=== PATIENT | male | born 1995 | race Caucasian/White ===

== ENCOUNTER 2016-09-08 09:46 | Inpatient (IN) | payer BC ==
[~2016-09-08] VITALS: Ht 182.9 cm; Wt 76.8 kg
[2016-09-08] MEDS ORDERED: ONDANSETRON INJ 2 MG/ML 2 ML VIAL IV STA (10:02)
[2016-09-08] MEDS ORDERED: SODIUM CHLORIDE 0.9% 1000ML 1,000 ML IV STA (10:02)
[2016-09-08] MEDS: MoRPHine SULFATE 4 MG/ML 1 ML CARP\\VIAL IV PRN ×3 (10:07→11:04)
[2016-09-08] MEDS ORDERED: AMPH20CA3 PO (10:14)
[2016-09-08] MEDS ORDERED: PARO1TAB27 PO (10:14)
[2016-09-08 10:19] LABS: BASO % 0.5 %; BASO ABS # 0.07 K/uL (0-0.2); COMPLETE YES; EOS % 8.8 %; HEMATOCRIT 44.5 % (42-52); IG% 0.2 %; LYMPH % 31.5 %; LYMPH ABS # 4.53 K/uL (1.2-3.4); MEAN CELL VOLUME 88.1 fL (80-100); MEAN CORPUSCULAR HEMOGLOBIN 30.5 pg (25-34); MEAN CORPUSCULAR HGB CONC 34.6 g/dl (32-36); MEAN PLATELET VOLUME 8.8 fL (7.4-10.4); MONO % 8.2 %; NEUT % 50.8 %; PLATELET COUNT 340 K/uL (130-400); RED BLOOD COUNT 5.05 M/uL (4.7-6.1); WHITE BLOOD COUNT 14.39 K/uL (4.8-10.8)
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
--- NOTE | 2016-09-08 10:39 | DIAGNOSTIC IMAGING REPORT ---
CHEST ONE VIEW PORTABLE CLINICAL HISTORY: Atypical chest pain COMPARISON STUDY: No previous studies for comparison. FINDINGS: The cardiac and mediastinal contours are normal. There is no evidence of focal pulmonary consolidation. There is no evidence of failure. No pleural effusions are visualized.[ IMPRESSION: No active disease in the chest. Electronically signed by: Jose Danielson M.D. 09/08/2016 10:38 AM Dictated Date/Time: 09/08/2016 10:38 AM
[2016-09-08 10:41] LABS: ALT/SGPT 15 U/L (12-78); AST/SGOT 15 U/L (15-37); BLOOD UREA NITROGEN 9 mg/dl (7-18); BUN/CREATININE RATIO 9.4 (10-20); CALCIUM 8.6 mg/dl (8.5-10.1); CARBON DIOXIDE 27 mmol/L (21-32); CHLORIDE 104 mmol/L (98-107); GLUCOSE 149 mg/dl (70-99); PARTIAL THROMBOPLASTIN RATIO 1.1; PROTHROMBIN TIME (PATIENT) 10.6 SECONDS (9.0-12.0); SODIUM 140 mmol/L (136-145)
[2016-09-08 10:46] LABS: ALKALINE PHOSPHATASE 84 U/L (45-117); AMYLASE 51 U/L (25-115); C-REACTIVE PROTEIN < 0.29 mg/dl (0-0.29); CKMB/CK RATIO 0.5 (0-3.0)
[2016-09-08] MEDS ORDERED: OPTIRAY 320 IV PRN (11:00)
--- NOTE | 2016-09-08 11:36 | DIAGNOSTIC IMAGING REPORT ---
CT ANGIOGRAPHY OF THE CHEST, PULMONARY EMBOLUS PROTOCOL CLINICAL HISTORY: Chest pain. COMPARISON STUDY: Chest radiograph performed earlier today. TECHNIQUE: Following IV administration of 115 mL of Optiray-320, helical axial images of the chest were obtained utilizing the pulmonary embolus protocol. Maximal intensity projections and sagittal and coronal reformats were viewed on an independent 3D workstation. IV contrast was administered without complication. CT DOSE: 332.96 mGy.cm FINDINGS: No central or lobar pulmonary emboli are identified. The segmental and subsegmental vessels are suboptimally assessed due to respiratory motion. The size of the heart is normal. There is no evidence of thoracic aortic dissection. There is mild dilatation of the aortic root at the level of the sinuses of Valsalva. This is suboptimally assessed due to cardiac motion but measures approximately 4.2 cm in diameter. The remainder of the thoracic aorta is normal in caliber. The central airways are patent. No consolidation is present. Mild groundglass opacities with mosaic attenuation are noted. The bony thorax and upper abdomen are unremarkable. A few tiny subpleural nodules are likely benign. IMPRESSION: 1. No central or lobar pulmonary emboli. The segmental and subsegmental pulmonary arteries are suboptimally assessed due to artifact on this exam. 2. No thoracic aortic dissection identified. Mild dilatation of the aortic root at the level of the sinuses of Valsalva. This is suboptimally assessed on this exam due to motion artifact but the aorta measures approximately 4.2 cm at the level the sinuses of Valsalva. 3. No consolidation to suggest pneumonia. Mild ground glass opacities with mosaic attenuation may reflect air trapping. Electronically signed by: Jonathan Ríos M.D. 09/08/2016 11:34 AM Dictated Date/Time: 09/08/2016 11:26 AM
[2016-09-08] MEDS ORDERED: KETOROLAC TROMETHAMINE 30 MG/ML VIAL IV STA (11:43)
[2016-09-08] MEDS ORDERED: COLCHICINE 0.6 MG TAB PO ONE (11:45)
[2016-09-08] MEDS ORDERED: ACETAMINOPHEN 325 MG TAB PO PRN (13:15)
[2016-09-08] MEDS ORDERED: ONDANSETRON INJ 2 MG/ML 2 ML VIAL IV PRN (13:15)
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
[2016-09-08 16:15] VITALS: BP 122/70; PULSE 88; TEMP 36.8; O2SAT 97; Ht 182.9 cm; Wt 76.8 kg
[2016-09-08] MEDS: KETOROLAC TROMETHAMINE 30 MG/ML VIAL IV PRN (17:33)
--- NOTE | 2016-09-08 18:45 | ECHOCARDIOGRAM REPORT ---
*NOTICE TO RECEIVING REPUBLICAN AGENCY This information is strictly Confidential and protected under [place] law. [place] law prohibits you from making any further disclosure of this information unless further disclosure is expressly permitted by the written consent of the person to whom it pertains or is authorized by law. A general authorization for the release of medical or other information is not sufficient for this purpose. Hospital accepts no responsibility if the information is made available to any other person, INCLUDING THE PATIENT. Interpretation Summary * Name: JUWAN GRANADOS Study Date: 09/08/2016 03:16 PM BP: 135/83 mmHg * Patient Location: [facility] HR: 118 * : 1995 (M/d/yyyy) Gender: Male Height: 74 in * Age: 21 yrs Ethnicity: CA Weight: 171 lb * Ordering Physician: Eliecer Begum * Performed By: Kat Pelaez * * Reason For Study: PERICARDITIS * BSA: 2.0 m2 * -- Conclusions -- * 1. Normal left ventricular size and systolic function. EF 55-60%. No regional wall motion abnormalities. No left ventricular hypertrophy. No significant diastolic dysfunction. * 2. No significant valvular abnormalities. * 3. No pericardial effusion. * 4. No prior study available for comparison. Procedure Details * A complete two-dimensional transthoracic echocardiogram was performed (2D, M-mode, Doppler and color flow Doppler). Left Ventricle * Normal left ventricular size and systolic function. EF 55-60%. No regional wall motion abnormalities. No left ventricular hypertrophy. No significant diastolic dysfunction. Right Ventricle * The right ventricle is normal in size and function. * The right ventricular systolic function is normal as assessed by tricuspid annular plane systolic excursion (TAPSE) (normal >1.5 cm). Atria * The left atrial size is normal. * Right atrial size is normal. * There is no evidence of atrial septal defect, but resolution does not allow assessment for a patent foramen ovale. Mitral Valve * The mitral valve is normal in structure and function. * There is no mitral valve stenosis. * There is trace mitral regurgitation. Tricuspid Valve * The tricuspid valve is not well visualized, but is grossly normal. * There is no tricuspid stenosis. * There is trace tricuspid regurgitation. Aortic Valve * The aortic valve is normal in structure and function. * The aortic valve is trileaflet. * No hemodynamically significant valvular aortic stenosis. * No aortic regurgitation is present. Pulmonic Valve * The pulmonic valve is not well seen, but is grossly normal. * There is no pulmonic valvular stenosis. * There is no significant pulmonary regurgitation. Great Vessels * The aortic root is normal size. Pericardium/Pleural * There is no pericardial effusion. Great Vessels * Normal IVC size. MMode 2D Measurements and Calculations IVSd 1.1 cm IVSs 1.5 cm LVIDd 5.1 cm LVIDs 3.7 cm LVPWd 1.0 cm LVPWs 1.5 cm IVS/LVPW 1.1 FS 28.2 % EDV(Teich) 126.5 ml ESV(Teich) 58.0 ml EF(Teich) 54.1 % EDV(cubed) 136.4 ml ESV(cubed) 50.5 ml EF(cubed) 62.9 % % IVS thick 32.5 % % LVPW thick 45.0 % LV mass(C)d 215.8 grams LV mass(C)dI 106.1 grams/m\S\2 LV mass(C)s 212.0 grams LV mass(C)sI 104.3 grams/m\S\2 CO(Teich) 5.3 l/min CI(Teich) 2.6 l/min/m\S\2 SV(Teich) 68.5 ml SI(Teich) 33.7 ml/m\S\2 CO(cubed) 6.7 l/min CI(cubed) 3.3 l/min/m\S\2 SV(cubed) 85.8 ml SI(cubed) 42.2 ml/m\S\2 Ao root diam 3.6 cm Ao root area 10.1 cm\S\2 ACS 1.6 cm LA dimension 3.3 cm asc Aorta Diam 2.8 cm LA/Ao 0.93 LVOT diam 2.3 cm LVOT area 4.0 cm\S\2 LVAd ap4 34.8 cm\S\2 LVLd ap4 9.0 cm EDV(MOD-sp4) 113.0 ml EDV(sp4-el) 131.3 ml LVAs ap4 18.1 cm\S\2 LVLs ap4 6.7 cm ESV(MOD-sp4) 40.6 ml ESV(sp4-el) 54.6 ml EF(MOD-sp4) 64.1 % EF(sp4-el) 58.4 % LVAd ap2 29.0 cm\S\2 LVLd ap2 8.7 cm EDV(MOD-sp2) 81.8 ml LVAs ap2 15.1 cm\S\2 LVLs ap2 6.7 cm ESV(MOD-sp2) 28.1 ml EF(MOD-sp2) 65.6 % CO(MOD-sp4) 5.6 l/min CI(MOD-sp4) 2.8 l/min/m\S\2 SV(MOD-sp4) 72.4 ml SI(MOD-sp4) 35.6 ml/m\S\2 CO(MOD-sp2) 4.2 l/min CI(MOD-sp2) 2.1 l/min/m\S\2 SV(MOD-sp2) 53.7 ml SI(MOD-sp2) 26.4 ml/m\S\2 CO(sp4-el) 6.0 l/min CI(sp4-el) 2.9 l/min/m\S\2 SV(sp4-el) 76.7 ml SI(sp4-el) 37.7 ml/m\S\2 Doppler Measurements and Calculations MV E max emigdio 92.9 cm/sec MV A max emigdio 37.2 cm/sec MV E/A 2.5 MV dec time 0.18 sec Ao V2 max 133.3 cm/sec Ao max PG 7.1 mmHg Ao max PG (full) 1.1 mmHg Ao V2 mean 86.9 cm/sec Ao mean PG 3.5 mmHg Ao mean PG (full) 0.11 mmHg Ao V2 VTI 23.6 cm ALEX(I,A) 3.6 cm\S\2 ALEX(I,D) 3.6 cm\S\2 ALEX(V,A) 3.7 cm\S\2 ALEX(V,D) 3.7 cm\S\2 LV V1 max PG 6.0 mmHg LV V1 mean PG 3.4 mmHg LV V1 max 123.0 cm/sec LV V1 mean 87.6 cm/sec LV V1 VTI 21.0 cm SV(Ao) 238.1 ml SI(Ao) 117.1 ml/m\S\2 SV(LVOT) 84.3 ml SI(LVOT) 41.5 ml/m\S\2 TV E max emigdio 67.1 cm/sec PA V2 max 72.1 cm/sec PA max PG 2.1 mmHg PI end-d emigdio 91.2 cm/sec RAP systole 3.0 mmHg
[2016-09-08] MEDS: COLCHICINE 0.6 MG TAB PO SCH (19:44)
[2016-09-08 20:21] VITALS: BP 121/68; PULSE 95; TEMP 36.7; O2SAT 96
[2016-09-08 23:25] VITALS: BP 113/71; PULSE 73; TEMP 36.9; O2SAT 95
[2016-09-09 00:47] LABS: URINE APPEARANCE CLEAR (CLEAR); URINE BILIRUBIN NEG (NEG); URINE COLOR YELLOW; URINE EPITHELIAL CELL AUTO 0-5 /lpf (0-5); URINE NITRITE NEG (NEG); URINE PH 8.5 (4.5-7.5); URINE SPECIFIC GRAVITY 1.016 (1.000-1.030); UROBILINOGEN NEG (NEG)
[2016-09-09 00:48] LABS: MANUAL MICROSCOPIC REQUIRED? NO; REVIEW REQ? NO
[2016-09-09] MEDS: KETOROLAC TROMETHAMINE 30 MG/ML VIAL IV PRN (02:12)
[2016-09-09 03:28] VITALS: BP 107/68; PULSE 61; TEMP 37; O2SAT 94
[2016-09-09 05:41] LABS: BASO % 0.2 %; BASO ABS # 0.02 K/uL (0-0.2); COMPLETE YES; EOS % 3.9 %; HEMATOCRIT 40.4 % (42-52); IG% 0.3 %; LYMPH % 16.2 %; LYMPH ABS # 1.73 K/uL (1.2-3.4); MEAN CELL VOLUME 87.1 fL (80-100); MEAN CORPUSCULAR HEMOGLOBIN 30.2 pg (25-34); MEAN CORPUSCULAR HGB CONC 34.7 g/dl (32-36); MONO % 11.5 %; NEUT % 67.9 %; PLATELET COUNT 269 K/uL (130-400); RED BLOOD COUNT 4.64 M/uL (4.7-6.1); WHITE BLOOD COUNT 10.65 K/uL (4.8-10.8)
[2016-09-09 07:26] VITALS: BP 119/70; PULSE 69; TEMP 36.7; O2SAT 94
[2016-09-09] MEDS: COLCHICINE 0.6 MG TAB PO SCH (08:18)
[2016-09-09] MEDS ORDERED: CLC6 PO (09:56)
--- NOTE | 2016-09-09 09:58 | Discharge Instructions ---
Discharge Instructions Admission Reason for Admission: Pericarditis Discharge Discharge Diagnosis / Problem: Pericarditis Discharge Goals Goal(s): Decrease discomfort, Improve function, Increase independence, Improve disease control, Diagnostic testing, Therapeutic intervention Activity Recommendations Activity Limitations: resume your previous activity Exercise/Sports Limitations: none Shower/Bathe: no limitations . Instructions / Follow-Up Instructions / Follow-Up Patient to be discharged home Please take ibuprofen 600 mg three times a day for 1 week then change to 200 mg three time a day for 1 wek Please take presciption colchicine twice a day for 1 week If worsening pain, fevers, shortness of breath, please report to ER Current Hospital Diet Patient's current hospital diet: Regular Diet Discharge Diet Recommended Diet: Regular Diet Pending Studies Studies pending at discharge: no Medical Emergencies . Who to Call and When: Medical Emergencies: If at any time you feel your situation is an emergency, please call 911 immediately. . Non-Emergent Contact Non-Emergency issues call your: Primary Care Provider Call Non-Emergent contact if: you have a fever, your pain is worsening . . "Provider Documentation" section prepared by Eliecer Begum. VTE Core Measure Inpt VTE Proph given/why not?: Treatment not indicated
[2016-09-09 10:20] VITALS: BP 119/70; PULSE 69; TEMP 36.7; O2SAT 94
--- NOTE | 2016-09-09 12:36 | Discharge Summary ---
Discharge Summary Date of Service Sep 09, 2016. Discharge Summary Admission Date: Sep 08, 2016 at 14:00 Discharge Date: Sep 09, 2016 Discharge Disposition: Home Principal Diagnosis: Pericarditis Medication Reconciliation New Medications: Colchicine (Colcrys) 0.6 Mg Tab 0.6 MG PO BID for 7 Days, #14 TAB Continued Medications: Amphetamine-Dextroamphetamine 20MG (Adderall Xr 20MG) 1 Cap Cap 20 MG PO DAILY, CAP Paroxetine (Paxil) 20 Mg Tab 20 MG PO DAILY, TAB Discharge Exam Review of Systems: Constitutional: No chills, No fever Respiratory: No cough, No dyspnea on exertion, No shortness of breath, No sputum, No wheezing Cardiovascular: + chest pain, No edema, No orthopnea, No palpitations Abdomen: No nausea, No pain Musculoskeletal: No joint pain, No muscle pain Genitourinary - Male: No dysuria, No hematuria Neurologic: No numbness/tingling, No paralysis, No vertigo, No weakness Physical Exam: General Appearance: WD/WN, no apparent distress Neck: supple, no adenopathy Respiratory/Chest: chest non-tender, lungs clear, normal breath sounds Cardiovascular: no edema, no gallop Abdomen / GI: non tender, soft Neurologic/Psychiatric: alert, oriented x 3 Hospital Course Pt is a 21 yo male with central chest pain radiating to the back and worse with lying flat and on deep inspiration x 1day Pericarditis likely, ?viral in nature. Cont colchicine 0.6 mg PO twice a day. Pt reports relief with anti-inflammatories. EKG in ER NSR. ECHO preserved EF, no pericardial effusion. CT chest r/o dissection and PE. Mild leukocytosis noted. Discharge on 09/09 on colchicine 0.6 mg twice a day for a week and ibuprofen 600 mg three times a day for a week then decrease to 200 mg three times a day for a week. Total Time Spent: Greater than 30 minutes This includes examination of the patient, discharge planning, medication reconciliation, and communication with other providers. Discharge Instructions Please refer to the electronic Patient Visit Report (Discharge Instructions) for additional information.
== END 2016-09-09 10:54 | disposition home or self-care (01) | DRG 316 ==
LOC: ENRESERVDT → ENRESERVTM → C.EDB 09:48 → C.2T 14:00 → EDBEDREQ 14:06 → UNDOADMIN 16:02 → C.2T 16:02
PROVIDERS: ADMIT Hospitalist; ATTEND Hospitalist
DX: I30.1 Infective pericarditis (principal); B33.23 Viral pericarditis; F17.210 Nicotine dependence, cigarettes, uncomplicated; D72.829 Elevated white blood cell count, unspecified; R94.31 Abnormal electrocardiogram [ECG] [EKG]; Z79.899 Other long term (current) drug therapy